=== PATIENT | female | born 1990 | race Caucasian/White ===

== ENCOUNTER 2017-06-14 14:18 | Emergency (ER) | payer OTHER ==
[~2017-06-14] VITALS: Ht 162.6 cm; Wt 68.0 kg
[~2017-06-14 14:18] MED LIST: VICODIN 5-5001 EACH PO; YASMIN 28 TABL1 EACH; ZOFRAN4 MG PO
[2017-06-14] MEDS ORDERED: CELEXA10 MG PO (14:30)
[2017-06-14] MEDS ORDERED: PROTONIX 20 MG20 MG PO (16:06)
[2017-06-14 16:44] VITALS: BP 104/58
--- NOTE | 2017-06-15 09:36 | EKG ---
[place] [address] ELECTROCARDIOGRAM REPORT Name: SAMRA REED Room: [facility]#: [id number] Admission: 06/14/17 Attend Phys: Discharge: 06/14/17 Date of : 86 Report #: [id number] THIS REPORT FOR: //name// [facility] ED Test Date: 2017-06-14 Test Time: 14:24:46 Pat Name: SAMRA REED Department: Room: Gender: F [employer]: : 1990 Requested By: Naomi Martinez Order Number: [id number] MD: Hector Blount Measurements Intervals [place] Rate: 58 P: 29 [place]: 142 QRS: 56 QRSD: 100 T: 15 QT: 410 QTc: 403 Interpretive Statements Sinus bradycardia septal q waves Low voltage, precordial leads No previous ECG available for comparison Electronically Signed On 06-15-2017 9:36:15 CDT by Hector Blount [email or web address] <ELECTRONICALLY SIGNED> By: Hector Blount MD, [facility] 06/15/17 0936 1424 1424 Hector Blount MD, FACC /EPI
== END 2017-06-14 16:45 | disposition home or self-care (01) ==
LOC: M.ERS 14:18
DX: K21.9 Gastro-esophageal reflux disease without esophagitis (principal); F41.9 Anxiety disorder, unspecified